=== PATIENT | male | born 1975 | race Caucasian/White ===

== ENCOUNTER → 2023-09-07 06:44 | Outpatient (REF) | payer OTHER, SELFPAY | LOC: MRI 06:44 | PROVIDERS: ATTENDING PHYSICIAN Internal Medicine | DX: R41.82 Altered mental status, unspecified (principal) | CPT/HCPCS: 70551 ==

== ENCOUNTER → 2023-11-04 08:37 | Outpatient (REF) | payer OTHER, SELFPAY | LOC: HWRAD 08:37 | PROVIDERS: ATTENDING PHYSICIAN Internal Medicine; REFERRING PHYSICIAN Otolaryngology | DX: R13.0 Aphagia (principal); E06.3 Autoimmune thyroiditis | CPT/HCPCS: 76536 ==

== ENCOUNTER → 2024-12-10 14:40 | Outpatient (REF) | payer OTHER, SELFPAY | LOC: HWRCS 14:40 | PROVIDERS: ATTENDING PHYSICIAN Internal Medicine | DX: I34.0 Nonrheumatic mitral (valve) insufficiency (principal) | CPT/HCPCS: 93306 ==